=== PATIENT | female | born 1960 | race Caucasian/White ===

== ENCOUNTER 2022-01-09 13:23 | Outpatient (CLI) | payer OTHER, SELFPAY ==
--- NOTE | 2022-01-09 | ECHO_ITS ---
Patient Info Name: MALINI SMITH Age: 61 years : 1960 Gender: Female Ht: 64 in Wt: 180 lbs BSA: 1.95 m2 HR: 77 bpm BP: 157 / 91 mmHg Technical Quality: Good Exam Date: 01/09/2022 2:25 PM Exam Location: [facility] Patient Status: Outpatient Admit Date: 01/09/2022 Staff Ordering Physician: Nikko, Ella King MD Model Artists': Brian Molina, CAROLINECS, RT Attending Provider: Nikko, Ella King MD Referring Physician: Nikko PATRICIO; Exam Type: CA echo doppler color flow Study Info Indications R00.2 - Palpitations Complete two-dimensional, color flow and Doppler transthoracic echocardiogram is performed. Strain analysis performed. Summary 1. Complete two-dimensional, color flow and Doppler transthoracic echocardiogram is performed. 2. Left ventricular chamber dimension is normal. 3. Left ventricular systolic function is normal, estimated at 60-65%. 4. The left ventricular diastolic function is grade I diastolic dysfunction. 5. E/e' 6 is not elevated. 6. Global longitudinal strain is abnormal at -13.9%. Left Ventricle E/e' 6 is not elevated. Global longitudinal strain is abnormal at -13.9%. Left ventricular chamber dimension is normal. Left ventricular systolic function is normal, estimated at 60-65%. The left ventricular diastolic function is grade I diastolic dysfunction. Right Ventricle Right ventricular systolic function is normal and with normal TAPSE 3.1 cm. Right ventricular chamber dimension is normal. Left Atria Left atrial chamber dimension is normal. Right Atria Right atrial chamber dimension is normal. Aortic Valve The aortic valve is trileaflet. There is no aortic valve stenosis. There is no aortic valve regurgitation. Pulmonic Valve There is no pulmonic regurgitation. Mitral Valve There is no mitral valve stenosis. There is no mitral valve regurgitation. Tricuspid Valve There is no tricuspid valve regurgitation. Pericardium/Pleural There is no pericardial effusion. Inferior Vena Cava Normal inferior vena cava with >50% collapse upon inspiration consistent with normal right atrial pressure, 5 mmHg. Aorta The aortic root size at the sinus of Valsalva is normal. Left Ventricular Outflow Tract Name Value Normal LVOT 2D LVOT Diameter 2.0 cm LVOT Doppler LVOT Peak Gradient 4 mmHg LVOT Mean Gradient 2 mmHg LVOT VTI 20 cm LVOT VTI/AV VTI Ratio 0.8 LVOT Stroke Volume 66 ml LVOT CO 5.2 l/min LVOT CI 2.6 l/min/m2 Mitral Valve Name Value Normal MV Doppler MV Decel Quay 200 cm/s2 MV PHT 87 ms MV Area (PHT)
== END 2022-01-09 13:24 | disposition home or self-care (01) ==
PROVIDERS: PCP Family Medicine; Visit Provider Family Medicine
DX: R00.2 Palpitations (principal); I51.89 Other ill-defined heart diseases
CPT/HCPCS: 93306

== ENCOUNTER → 2022-01-29 11:36 | Outpatient (CLI) | payer OTHER, SELFPAY ==
--- NOTE | ~2022-01-29 | US_ITS ---
EXAMINATION: US thyroid DATE: 01/29/2022 12:17 INDICATION: Nontoxic goiter. Wes's thyroiditis. TECHNIQUE: Multiple ultrasound images of the thyroid were obtained. COMPARISON: None. FINDINGS: The right thyroid lobe measures 3.9 x 1.1 x 1.3 cm. The left thyroid lobe measures 3.8 x 1.5 x 1.6 c m. 6 mm wide than tall potentially solid very hypoechoic nodule with smooth margins and without echo genic foci in the right thyroid (TI-RADS 4, moderately suspicious , FNA if >=1.5 cm, annual followup is >=1 cm). Similar 2 mm very hypoechoic nodule in the left thyroid lobe. There is coarsened echotext ure throughout both thyroid lobes. IMPRESSION: 1. A couple small bilateral thyroid nodules measuring 6 mm on the right and 2 mm in the left which re main below size criteria for either biopsy or ultrasound follow-up recommendations. Recommend clinica l followup with repeat imaging if there are changes on physical exam. Reviewed, dictated and finalized at location B. IMPRESSION: 1. A couple small bilateral thyroid nodules measuring 6 mm on the right and 2 m m in the left which remain below size criteria for either biopsy or ultrasound follow-up recommendations. Recommend clinical followup with repeat imaging if t here are changes on physical exam.
== END ==
PROVIDERS: PCP Family Medicine; Visit Provider Internal Medicine Endocrinology, Diabetes & Metabolism
DX: E04.2 Nontoxic multinodular goiter (principal)
CPT/HCPCS: 76536